=== PATIENT | female | born 1970 | race Caucasian/White ===

== ENCOUNTER 2019-06-21 09:12 | Emergency (ER) | payer BC ==
[2019-06-21 09:30] VITALS: BP 99/77
--- NOTE | 2019-06-21 10:46 | UC ---
Eye Complaint HPI - HPI Summary HPI Summary: Patient is a 49-year-old female presenting with left eyelid irritation and redness 3 days. Patient states she believes she has a stye. Notes feeling of discomfort when she blinks. Denies discharge from the eye. Denies changes in vision. States she has tried warm compresses without relief. - History of Current Complaint Chief Complaint: UCEye Stated Complaint: EYE IRRITATION Hx Obtained From: Patient Hx Last Menstrual Period: 06/18/19 Onset/Duration: Sudden Onset, Lasting Days Timing: Constant Pain Intensity: 8 - Allergies/Home Medications Allergies/Adverse Reactions: Allergies Allergy/AdvReac Type Severity Reaction Status Date / Time No Known Allergies Allergy Verified 06/21/19 09:30 PMH/Surg Hx/FS Hx/Imm Hx Previously Healthy: Yes - Surgical History Surgical History: None - Family History Known Family History: Positive: Unknown, Non-Contributory - Social History Occupation: Employed Full-time Lives: With Family Alcohol Use: None Substance Use Type: None Smoking Status (MU): Never Smoked Tobacco Review of Systems All Other Systems Reviewed And Are Negative: Yes Eyes: Positive: Other - redness of L upper eyelid. Negative: Blurred Vision, Diplopia, Drainage, Eye Redness, Photophobia Respiratory: Positive: Negative Cardiovascular: Positive: Negative Neurological: Positive: Negative Physical Exam Triage Information Reviewed: Yes Appearance: Well-Appearing, No Pain Distress, Well-Nourished Vital Signs: Initial Vital Signs Temp 98.5 F 06/21/19 09:27 Pulse 63 06/21/19 09:27 Resp 16 06/21/19 09:27 BP 99/77 06/21/19 09:27 Pulse Ox 100 06/21/19 09:27 Vital Signs Reviewed: Yes Eyes: Positive: Conjunctiva Clear, Other: - mild erythema and swelling of L upper medial eyelid. PERRLA. EOM intact. Negative: Discharge ENT: Positive: Hearing grossly normal Neck: Positive: Nontender Respiratory Exam: Normal Respiratory: Positive: Lungs clear, Normal breath sounds, No respiratory distress Cardiovascular Exam: Normal Cardiovascular: Positive: RRR Neurological: Positive: Alert Psychological: Positive: Age Appropriate Behavior Eye Complaint Course/Dx - Course Course Of Treatment: Discussed blepharitis with patient. Instructed to continue with warm compresses and add erythromycin ointment to help relieve symptoms. Instructed to follow up with ophthalmology for further eval if symptoms persist. Patient voiced understanding and agreed with treatment plan. - Differential Dx/Diagnosis Provider Diagnosis: Blepharitis of eyelid of left eye Discharge ED - Sign-Out/Discharge Documenting (check all that apply): Patient Departure All imaging exams completed and their final reports reviewed: No Studies - Discharge Plan Condition: Stable Disposition: HOME Prescriptions: Erythromycin OPTH OINT* [Erythromycin 0.5% OPTH OINT*] 1 applic LEFT EYE TID 7 Days #1 ophth.oint Patient Education Materials: Blepharitis (ED) Referrals: Cristy Sheridan MD [Primary Care Provider] - If Needed Additional Instructions: As discussed, use the erythromycin ointment as prescribed. Continue with warm compresses 2-3 times daily. Follow up with your emergency vehicle driver if symptoms do not resolve within 7 days. - Billing Disposition and Condition Condition: STABLE Disposition: Home
== END 2019-06-21 11:18 | disposition home or self-care (01) ==
LOC: MERGE 09:12 → UCEAST 09:12 → EDBD 09:12 → UCEAST 11:18
DX: H01.004 Unspecified blepharitis left upper eyelid (principal)
CPT/HCPCS: 99202; G0463